=== PATIENT | female | born 1985 | race African-American/Black ===

== ENCOUNTER 2020-11-01 13:04 | Emergency (ER) | payer OTHER, MEDICARE ==
[2020-11-01] MEDS ORDERED: Ketorolac Tromethamine 30 MG/ML VIAL ONE (13:45)
[2020-11-01] MEDS ORDERED: Boostrix 0.5 ML (Tdap) VIAL ONE (13:46)
== END 2020-11-01 14:30 | disposition home or self-care (01) ==
LOC: ERS 13:04
DX: S71.151A Open bite, right thigh, initial encounter (principal); S61.239A Puncture wound without foreign body of unspecified finger without damage to nail, initial encounter; F17.210 Nicotine dependence, cigarettes, uncomplicated; Z23 Encounter for immunization; W54.0XXA Bitten by dog, initial encounter
CPT/HCPCS: 90471; 90715; 96372; J1885